=== PATIENT | male | born 1990 | race Caucasian/White ===

== ENCOUNTER 2016-11-23 07:25 | Day surgery (SDC) | payer BC ==
[2016-11-23] MEDS ORDERED: Lactated Ringers 1,000 ML IV SCH (07:45)
[2016-11-23] MEDS ORDERED: Propofol 200 MG/20 ML SDV IV ONE (09:00)
--- NOTE | 2016-11-23 09:24 | PCM.OPNOTE ---
- General Post-Op/Procedure Note Date of Surgery/Procedure: 11/23/16 Operative Procedure(s): c scope with bx Findings: sigmoid polyp rectal polyp Pre Op Diagnosis: hematochezia Post-Op Diagnosis: sigmoid polyp. rectal polyp Anesthesia Technique: MAC Primary Surgeon: Avtar Jolley Anesthesia Provider: Jesus Olivarez Pathology: sigmoid polyp rectal polyp Complications: None Condition: Good Free Text/Narrative:: see dictation
--- NOTE | 2016-11-23 09:47 | OR ---
DATE OF OPERATION: 11/23/2016 SURGEON: Avtar Jolley MD PROCEDURE PERFORMED: Colonoscopy with cold forceps biopsy. PREOPERATIVE DIAGNOSIS: Hematochezia. POSTOPERATIVE DIAGNOSIS: Rectal polyp and sigmoid polyp. INDICATIONS FOR PROCEDURE: This is a 26-year-old white male, who presents with a history and chief complain of hematochezia. He was offered and accepted colonoscopy. DESCRIPTION OF OPERATION: After an excellent IV sedation was administered, digital rectal exam was performed. No marked abnormality was noted. Flexible colonoscope was inserted and advanced to the cecum without difficulty. The following findings were noted. Ascending colon, unremarkable. Transverse colon, unremarkable. Descending colon, unremarkable. Sigmoid, small polypoid lesion, having appearance of hyperplasia, was biopsied with cold biopsy forceps and sent for permanent. Rectum, an adenomatous-appearing polyp was identified and biopsied and sent for permanent as well. On retroflexing of the scope, really no evidence of any marked hemorrhoidal tissue. Colon was deflated and the scope was removed. The patient tolerated the procedure well and was taken to recovery room in good condition. /[id number] /MODL
[2016-11-23 10:29] VITALS: BP 122/73
== END 2016-11-23 10:16 | disposition home or self-care (01) ==
LOC: FB.SDS 07:25
PROVIDERS: ATTEND Surgery
DX: D12.8 Benign neoplasm of rectum (principal); K63.5 Polyp of colon; Z87.891 Personal history of nicotine dependence
CPT/HCPCS: 45380; 88305; J2704; J7120

== ENCOUNTER 2022-06-04 07:12 | Day surgery (SDC) | payer OTHER ==
[2022-06-04] MEDS ORDERED: Glycopyrrolate 0.2 MG/ML 5 ML MDV IV ONE (07:13)
[2022-06-04] MEDS ORDERED: Propofol 200 MG/20 ML SDV IV ONE (07:13)
[2022-06-04] MEDS ORDERED: Midazolam 1 MG/ML 2 ML SDV IV ONE (07:13)
[2022-06-04] MEDS ORDERED: Lidocaine 2% 100 MG/5 ML Syringe IVPUSH ONE (07:13)
[2022-06-04] MEDS ORDERED: Sodium Chloride 0.9% 10 ML Syringe FLUSH PRN (07:15)
[2022-06-04] MEDS ORDERED: Lactated Ringers 1,000 ML IV SCH (07:15)
[2022-06-04 09:53] VITALS: BP 118/70; PULSE 73
== END 2022-06-04 10:34 | disposition home or self-care (01) ==
LOC: FB.SDS 07:12
PROVIDERS: ATTEND Surgery
DX: K63.5 Polyp of colon (principal); Z87.891 Personal history of nicotine dependence; Z79.899 Other long term (current) drug therapy
CPT/HCPCS: 00811; 45385; 88305; J2250; J2704; J3490; J7120